=== PATIENT | male | born 1980 | race Two or more races ===

== ENCOUNTER 2023-08-07 17:05 | Emergency (ER) | payer MEDICAID, SELFPAY ==
--- NOTE | ~2023-08-07 | XR_ITS ---
EXAMINATION: CHEST 2 VIEWS CLINICAL INFORMATION: chest pain, sob. COMPARISON: 12/18/2017. TECHNIQUE: PA and lateral views of the chest obtained. FINDINGS: The lungs are well expanded. No focal infiltrate, effusion, edema, or pneumothorax. Cardiac and mediastinal silhouettes are within normal limits for technique. No acute bony abnormality seen XR/XR chest 2V IMPRESSION: No evidence of acute disease
--- NOTE | 2023-08-07 17:08 | ECG_ITS ---
Test Reason : CHEST PAIN Blood Pressure : / mmHG Vent. Rate : 084 BPM Atrial Rate : 084 BPM P-R Int : 128 ms QRS Dur : 078 ms QT Int : 320 ms P-R-T Axes : 027 -11 009 degrees QTc Int : 378 ms Normal sinus rhythm Normal ECG When compared with ECG of 18-DEC-2017 03:28, No significant change was found Referred By: Mare Cui Electronically Signed By:VIKAS FLOOD
[2023-08-07 17:40] VITALS: BP 168/111; PULSE 86; RESP 18; TEMP 36.8; O2SAT 99; BMI 29.8
--- NOTE | 2023-08-07 17:40 | ED_ITS ---
HPI - Chest Pain General Chief Complaint: Chest Pain Stated Complaint: chest pain,sob Time Seen by Provider: 08/07/23 20:32 Source: patient Mode of arrival: ambulatory Limitations: no limitations History of Present Illness HPI narrative: 43-year-old male with no major medical problems presents with chest pain. The chest pain started 3 weeks ago. It has been intermittent. The pain became more persistent today which is white presented to the emergency department. Patient reports that is worse with deep inspiration. It is left-sided. Sometimes it appears to radiate to his left shoulder. It can also be worse with movement. He has never had this pain prior to the past few weeks. He denies any lower extremity edema. Has no history of PE or DVT. Denies any coronary artery disease. Denies any family history of heart problems or sudden cardiac . He denies a family history of blood clotting disorders. Currently his pain is a 10/10. He describes the pain as a very sharp pain. When it occurs, acute it can be very brief. Related Data Previous Rx's Medication Instructions Recorded meloxicam 15 mg tablet 15 mg PO DAILY #30 tabs 01/20/21 losartan 25 mg tablet 25 mg PO DAILY #20 tabs 08/07/23 meloxicam 15 mg tablet 15 mg PO DAILY #20 tabs 08/07/23 meloxicam 15 mg tablet 15 mg PO DAILY #30 tabs 08/07/23 Allergies Allergy/AdvReac Type Severity Reaction Status Date / Time No Known Allergies Allergy Verified 02/02/21 10:08 Review of Systems 2 Review of Systems: CONSTITUTIONAL: Denies weight loss, fever and chills. HEENT: Denies changes in vision and hearing. RESPIRATORY: Denies SOB and cough. CV: Denies palpitations + CP. GI: Denies abdominal pain, nausea, vomiting and diarrhea. : Denies dysuria and urinary frequency. MSK: Denies myalgia and joint pain. SKIN: Denies rash and pruritus. NEUROLOGICAL: Denies headache and syncope. PSYCHIATRIC: Denies recent changes in mood. Denies anxiety and depression. All other ROS are negative unless in HPI PMFSH Past Medical History Medical History Essential (primary) hypertension Surgical History No pertinent past surgical history Family History Family History Father Prostate cancer Mother No problems noted. Social History Social History Alcohol intake: current Alcohol intake frequency: a few times a month Advance Directives: No Advance Directives Information Provided: Yes Physical Exam 2 Vital Signs: Vital Signs: Last Vital Signs Temp 98.3 F 08/07/23 17:40 Pulse 65 08/07/23 21:51 Resp 18 08/07/23 17:40 BP 148/102 H 08/07/23 21:51 Pulse Ox 99 08/07/23 17:40 O2 Del Method Room Air 08/07/23 17:40 BMI result Body Mass Index 29.8 GEN: Well developed, no acute distress, alert, oriented HEENT: Normocephalic, atraumatic, normal external ears, nose appears normal, no oropharyngeal edema or exudates Eyes: Normal to appearance Neck: Supple, no lymphadenopathy Respiratory: Talks in complete sentences, no respiratory distress, clear to auscultation bilaterally Cardiovascular: Regular rate and rhythm, no murmurs rubs or gallops Abdomen: Soft, nontender, nondistended, no guarding, no rebound Back: No CVA tenderness Extremities: No clubbing cyanosis or edema Neurologic: No focal neurologic deficits, cranial nerves 2-12 intact, strength is 5/5 bilaterally Skin: No rash Chest wall: Reproducible left-sided midclavicular line tenderness to palpation Course Course Course Narrative: RME - 43 yo Swedish speaking male with history of HTN who presents to the ER for evaluation of constant 9/10 left sided chest pain and SOB that started at 8am today when he woke up. Pain is described as a heaviness and it radiates to the left arm. He has some numbness in his left hand. History of similar chest pains in the past. Plan: cardiac workup Reevaluation(s) Reevaluation #1: The workup is complete. Patient has elevated blood pressure. Mostly recent blood pressure was 179/98. Will provide patient with a small dose of labetalol, analgesics medication and re-evaluate the patient. There is no evidence of acute cardiac ischemia. Patient's exam is most can not consistent with acute costochondritis. Will treat with anti-inflammatory pain medications. Time: 20:59 Reevaluation #2: Pain is much better after Toradol. Pressures come down nicely. He will start oral antihypertensives and anti-inflammatories and follow with the clinic in 1 week. Time: 22:02 Medications Administered Discontinued Medications Generic Name Dose Route Start Last Admin Trade Name Renaldo PRN Reason Stop Dose Admin Ketorolac Tromethamine 30 mg 08/07/23 20:53 08/07/23 21:52 Ketorolac Tromethamine 30 Mg/Ml Vial IM 08/07/23 20:54 30 mg ONCE ONE Administration Labetalol HCl 100 mg 08/07/23 20:53 08/07/23 21:52 Labetalol Hcl 100 Mg Tablet PO 08/07/23 20:54 100 mg ONCE ONE Administration Protocol Medical Decision Making Medical Decision Making [facility] Narrative: Atypical chest pain, musculoskeletal chest pain, chest wall pain, myocardial infarction, pericarditis, myocarditis, anxiety, stress, reflux, pneumonia, pulmonary embolus, dissection PERC Rule for Pulmonary Embolism from [employer] on 08/07/2023 All calculations should be rechecked by clinician prior to use RESULT SUMMARY: 0 criteria No need for further workup, as <2% chance of PE. If no criteria are positive and clinician?s pre-test probability is <15%, PERC Rule criteria are satisfied. INPUTS: Age >=0 ?> 0 = No HR >=00 ?> 0 = No O? sat on room air ?> 0 = No Unilateral leg swelling ?> 0 = No Hemoptysis ?> 0 = No Recent surgery or trauma ?> 0 = No Prior PE or DVT ?> 0 = No Hormone use ?> 0 = No Plan NSAIDS, BP management, CXR, reevaluate Differential Diagnosis Differential Diagnoses: The differential diagnosis associated with the presentation includes (see above) Admission/Observation Consideration of admission/observation: Escalation of care including admission/observation considered Lab Data MDM Lab Attestation statement: I reviewed the patient's lab results. 08/07/23 18:00 08/07/23 17:59 Labs: Lab Results 08/07/23 08/07/23 Range/Units 17:59 18:00 WBC 8.5 (4.8-10.8) X10*3/uL RBC 5.93 H (4.60-5.80) X10*6/uL Hgb 18.4 H (14.0-18.0) g/dl Hct 51.5 (42.0-52.0) % MCV 86.8 (80.0-98.0) fL MCH 31.0 (27.0-33.0) pg MCHC 35.7 (31.0-36.0) g/dl RDW 11.5 (11.0-16.0) % Plt Count 233 (160-400) X10*3/uL MPV 11.1 (9.4-12.4) fL Immature Gran % (Auto) 0.2 (0.0-0.4) % Neut % (Auto) 51.2 (45-73) % Lymph % (Auto) 28.4 (20-40) % Scott % (Auto) 6.6 (2-11) % Eos % (Auto) 12.4 H (0-4) % Baso % (Auto) 1.2 (0-2) % Lymph # (Auto) 2.4 (1.2-4.9) X10*3/uL Scott # (Auto) 0.6 (0.1-1.2) X10*3/uL Eos # (Auto) 1.1 H (0.0-0.4) X10*3/uL Baso # (Auto) 0.1 (0.0-0.2) X10*3/uL Abs Immat Gran (auto) 0.02 (0.00-0.03) X10*3/uL Absolute Neuts (auto) 4.4 (2.0-8.3) x10*3/uL Absolute Nucleated RBC 0.000 (0.0-0.012) X10*3/uL Nucleated RBC % (auto) 0.0 (0.0-0.2) /100WBC Sodium 139 (135-145) mmol/L Potassium 4.0 (3.3-5.1) mmol/L Chloride 107 (96-108) mmol/L Carbon Dioxide 24 (22-29) mmol/L Anion Gap 12 (12-20) BUN 14 (9-16) mg/dL Creatinine 1.07 (0.5-1.4) mg/dL Estim Creat Clear Calc 96.4 Estimated GFR > 60 Random Glucose 102 (60-115) mg/dL Calcium 11.2 H (8.4-10.2) mg/dL Magnesium 2.1 (1.6-2.6) mg/dL Total Bilirubin 0.9 (0.0-1.0) mg/dL Direct Bilirubin 0.3 (0.0-0.5) mg/dL AST 34 (5-37) U/L ALT 93 H (0-40) U/L Alkaline Phosphatase 100 (39-117) U/L Troponin I High Sens 6.5 (<3.5-35.0) ng/L Total Protein 7.8 (6.5-8.0) g/dL Albumin 4.6 (3.5-5.0) g/dL Independent Interpretation I performed an independent interpretation of an: EKG (Normal sinus rhythm heart rate 84, no acute ST elevations depressions, early repolarization.) and Plain X- Ray (Chest: No acute cardiopulmonary disease) Prescription Management I considered prescription management with: Pain Medication Discharge Plan Discharge Clinical Impression: Costalchondritis, Hypertensive urgency Patient Disposition: Home, Self-Care Instructions: Costochondritis (ED), Hypertensive Crisis (ED) Prescriptions: New meloxicam 15 mg tablet 15 mg PO DAILY Qty: 20 0RF meloxicam 15 mg tablet 15 mg PO DAILY Qty: 30 0RF losartan 25 mg tablet 25 mg PO DAILY Qty: 20 0RF No Action meloxicam 15 mg tablet 15 mg PO DAILY Qty: 30 0RF Referrals: Physician,None [Primary Care Provider] - (Primary care provider - or your primary clinic in 1 week for repeat blood pressure check) Print Language: Swedish
[2023-08-07 18:05] LABS: MANUAL DIFF FLAG NO
[2023-08-07 18:09] LABS: Basophils Absolute Auto 0.1 X10*3/uL (0.0-0.2); Basophils Percent Auto 1.2 % (0-2); Eosinophils Absolute Auto 1.1 X10*3/uL (0.0-0.4); Eosinophils Percent Auto 12.4 % (0-4); Hematocrit 51.5 % (42.0-52.0); Hemoglobin 18.4 g/dl (14.0-18.0); Imm Gran Abs Auto 0.02 X10*3/uL (0.00-0.03); Imm Gran Pct Auto 0.2 % (0.0-0.4); Lymphocytes Absolute Auto 2.4 X10*3/uL (1.2-4.9); Lymphocytes Percent Auto 28.4 % (20-40); Mean Corpuscular HGB Conc 35.7 g/dl (31.0-36.0); Mean Corpuscular Volume 86.8 fL (80.0-98.0); Mean Platelet Volume 11.1 fL (9.4-12.4); Monocytes Absolute Auto 0.6 X10*3/uL (0.1-1.2); Monocytes Percent Auto 6.6 % (2-11); Neutrophils Absolute Auto 4.4 x10*3/uL (2.0-8.3); Neutrophils Percent Auto 51.2 % (45-73); Platelet Count 233 X10*3/uL (160-400); Red Blood Count 5.93 X10*6/uL (4.60-5.80); Red Cell Distribution Width 11.5 % (11.0-16.0); White Blood Count 8.5 X10*3/uL (4.8-10.8)
[2023-08-07 18:23] LABS: Alanine Aminotransferase 93 U/L (0-40); Albumin Level 4.6 g/dL (3.5-5.0); Alkaline Phosphatase 100 U/L (39-117); Anion Gap 12 (12-20); Aspartate Amino Transferase 34 U/L (5-37); Bilirubin Direct 0.3 mg/dL (0.0-0.5); Bilirubin Total 0.9 mg/dL (0.0-1.0); Blood Urea Nitrogen 14 mg/dL (9-16); Calcium 11.2 mg/dL (8.4-10.2); Carbon Dioxide 24 mmol/L (22-29); Chloride 107 mmol/L (96-108); Creatinine Clr Calc Pharmacy 96.4; Estimated Glomerular Filt Rate > 60; Glucose Random 102 mg/dL (60-115); Magnesium 2.1 mg/dL (1.6-2.6); Sodium 139 mmol/L (135-145); Total Protein 7.8 g/dL (6.5-8.0)
[2023-08-07 18:30] LABS: Troponin-I High Sensitivity 6.5 ng/L (<3.5-35.0)
[2023-08-07 21:51] VITALS: BP 148/102; PULSE 65
[2023-08-07] MEDS: Labetalol HCL 100 MG TABLET PO (21:52)
[2023-08-07] MEDS: Ketorolac Tromethamine 30 MG/ML VIAL IM (21:52)
[2023-08-07 23:11] VITALS: BP 127/84; PULSE 74; RESP 12; TEMP 36.6; O2SAT 99
--- NOTE | 2023-08-07 23:14 | PC.NURSE ---
pt calm and cooperative. vss. pt partner at bedside. pt ambulatory at discharge.provided with discharge packet. pt verbalized understanding of discharge plan
== END 2023-08-07 23:16 | disposition home or self-care (01) ==
PROVIDERS: Physician Assistant; Emergency Provider Emergency Medicine
DX: I16.0 Hypertensive urgency (principal); R07.89 Other chest pain; R06.02 Shortness of breath; M94.0 Chondrocostal junction syndrome [Tietze]; Z79.899 Other long term (current) drug therapy
CPT/HCPCS: 36415; 71046; 80048; 80076; 83735; 84484; 85025; 93005; 96372; 99284; 99285; J1885

== ENCOUNTER 2023-12-02 20:22 | Emergency (ER) | payer OTHER, MEDICAID, SELFPAY ==
[2023-12-02 20:37] VITALS: BP 163/105; PULSE 88; RESP 18; TEMP 36.8; O2SAT 96; BMI 30.3
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
== END 2023-12-02 22:44 | disposition home or self-care (01) ==
PROVIDERS: Emergency Provider Emergency Medicine
DX: S13.4XXA Sprain of ligaments of cervical spine, initial encounter (principal); S39.012A Strain of muscle, fascia and tendon of lower back, initial encounter; V43.52XA Car driver injured in collision with other type car in traffic accident, initial encounter; Y93.89 Activity, other specified; Y92.410 Unspecified street and highway as the place of occurrence of the external cause; Y99.9 Unspecified external cause status
CPT/HCPCS: 99282; 99283

== ENCOUNTER 2023-12-20 10:38 | Emergency (ER) | payer MEDICAID, OTHER, SELFPAY ==
[2023-12-20 10:54] VITALS: BP 135/93; PULSE 125; RESP 20; TEMP 38.6; O2SAT 96; BMI 29.4
[2023-12-20] MEDS: Acetaminophen 325 MG TABLET 650 MG PO (10:58)
[2023-12-20 11:32] LABS: COVID-19 Test Negative (Negative); IDNOW Serial# 08D9AD1C
[2023-12-20 11:32] LABS: IDNOW Serial# 152EDE1D; Influenza A Positive (Negative); Influenza B2 Negative (Negative)
[2023-12-20 12:29] VITALS: BP 120/96; PULSE 109; RESP 20; TEMP 37.4; O2SAT 97
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
== END 2023-12-20 12:46 | disposition home or self-care (01) ==
PROVIDERS: Emergency Provider Emergency Medicine
DX: J10.1 Influenza due to other identified influenza virus with other respiratory manifestations (principal); R50.9 Fever, unspecified; M79.10 Myalgia, unspecified site; R51.9 Headache, unspecified; M54.50 Low back pain, unspecified; Z11.52 Encounter for screening for COVID-19
CPT/HCPCS: 87502; 87635; 99283

== ENCOUNTER 2024-07-31 08:27 | Outpatient (REF) | payer MEDICAID, OTHER, SELFPAY ==
[2024-07-31 11:02] LABS: MANUAL DIFF FLAG NO
[2024-07-31 11:17] LABS: Basophils Absolute Auto 0.1 X10*3/uL (0.0-0.2); Eosinophils Absolute Auto 0.8 X10*3/uL (0.0-0.4); Eosinophils Percent Auto 10.8 % (0-4); Hematocrit 47.1 % (42.0-52.0); Hemoglobin 16.4 g/dl (14.0-18.0); Imm Gran Abs Auto 0.02 X10*3/uL (0.00-0.03); Imm Gran Pct Auto 0.3 % (0.0-0.4); Lymphocytes Absolute Auto 1.9 X10*3/uL (1.2-4.9); Lymphocytes Percent Auto 26.2 % (20-40); Mean Corpuscular HGB Conc 34.8 g/dl (31.0-36.0); Mean Corpuscular Hemoglobin 31.5 pg (27.0-33.0); Mean Corpuscular Volume 90.6 fL (80.0-98.0); Mean Platelet Volume 12.1 fL (9.4-12.4); Monocytes Absolute Auto 0.5 X10*3/uL (0.1-1.2); Monocytes Percent Auto 6.5 % (2-11); Neutrophils Absolute Auto 4.1 x10*3/uL (2.0-8.3); Neutrophils Percent Auto 55.2 % (45-73); Platelet Count 196 X10*3/uL (160-400); Red Cell Distribution Width 11.8 % (11.0-16.0); White Blood Count 7.3 X10*3/uL (4.8-10.8)
[2024-07-31 11:52] LABS: Alanine Aminotransferase 95 U/L (0-40); Albumin Level 4.2 g/dL (3.5-5.0); Alkaline Phosphatase 103 U/L (39-117); Anion Gap 13 (12-20); Aspartate Amino Transferase 37 U/L (5-37); Bilirubin Total 0.6 mg/dL (0.0-1.0); Blood Urea Nitrogen 11 mg/dL (9-16); Calcium 10.4 mg/dL (8.4-10.2); Carbon Dioxide 22 mmol/L (22-29); Chloride 107 mmol/L (96-108); Cholesterol 186 mg/dL (<200); Estimated Glomerular Filt Rate > 60; Glucose Random 116 mg/dL (60-115); HBS Num1 28.58 mIU/mL (0-7.99); HBc Num1 0.11 S/CO (0.00-0.79); HBsAGNum1 0.45 S/CO (0.00-0.99); HDL Cholesterol 33 mg/dL (>40); HIV AB/AG Nonreactive (Nonreactive); HIV Num 1 0.06 S/CO (0.00-0.99); Hepatitis A Antibody IgM 0.28 Index (0-0.79); Hepatitis B Core Antibody Nonreactive (Nonreactive); Hepatitis B Surface Antigen Negative (Negative); LDL Cholesterol Calculated 129 mg/dL (<100); Potassium 4.1 mmol/L (3.3-5.1); Sodium 138 mmol/L (135-145); TSH reflex Free T4 1.02 uIU/mL (0.32-4.0); Total Protein 7.3 g/dL (6.5-8.0); Triglycerides 121 mg/dL (<150); Vitamin D 25-OH Total 38.2 ng/mL (>30); ~HepC Num1 0.11 S/CO (0.00-0.79); ~Hepatitis A Antibody IgM Nonreactive (Nonreactive); ~Hepatitis B Surface Antibody REACTIVE (Nonreactive); ~Hepatitis C Antibody Nonreactive (Nonreactive)
[2024-07-31 11:53] LABS: Syphilis Screen Nonreactive (Nonreactive)
[2024-07-31 11:56] LABS: PSA,Total (Free>4and<10) 0.44 ng/mL (0.00-4.00)
[2024-07-31 11:59] LABS: Reflex LDLD? No
== END 2024-07-31 08:28 | disposition home or self-care (01) ==
LOC: HO.HHCL 08:27
PROVIDERS: Visit Provider Internal Medicine
DX: R03.0 Elevated blood-pressure reading, without diagnosis of hypertension (principal); Z11.3 Encounter for screening for infections with a predominantly sexual mode of transmission; R39.9 Unspecified symptoms and signs involving the genitourinary system; M54.50 Low back pain, unspecified; G89.29 Other chronic pain
CPT/HCPCS: 36415; 80053; 80061; 82306; 84153; 84443; 85025; 86704; 86706; 86709; 86780; 86803; 87340; 87389

== ENCOUNTER 2025-09-30 08:54 | Outpatient (REF) | payer MEDICAID, OTHER, SELFPAY ==
[2025-09-30 12:49] LABS: Alanine Aminotransferase 57 U/L (0-40); Albumin Level 4.7 g/dL (3.5-5.0); Alkaline Phosphatase 100 U/L (39-117); Anion Gap 11 (12-20); Aspartate Amino Transferase 29 U/L (5-37); Blood Urea Nitrogen 12 mg/dL (9-16); Calcium 10.3 mg/dL (8.4-10.2); Carbon Dioxide 26 mmol/L (22-29); Chloride 105 mmol/L (96-108); Cholesterol 213 mg/dL (<200); Estimated Glomerular Filt Rate > 60; HDL Cholesterol 42 mg/dL (>40); Potassium 4.2 mmol/L (3.3-5.1); Sodium 138 mmol/L (135-145); Total Protein 7.5 g/dL (6.5-8.0); Triglycerides 225 mg/dL (<150)
[2025-09-30 14:01] LABS: Reflex LDLD? No
== END 2025-09-30 08:55 | disposition home or self-care (01) ==
LOC: HO.HHCL 08:54
PROVIDERS: PCP Internal Medicine; Visit Provider Internal Medicine
DX: I10 Essential (primary) hypertension (principal)
CPT/HCPCS: 36415; 80053; 80061